=== PATIENT | male | born 1985 | race Caucasian/White ===

== ENCOUNTER → 2021-02-20 | Outpatient (CLI) | payer BC ==
--- NOTE | 2021-02-20 10:27 | RAD ---
Site ID: [id number] EXAMINATION: US ABDOMEN OR LOWER BACK LIMITED. TECHNIQUE: Sonographic evaluation of the right upper quadrant with insurance verification representative images obtained HISTORY: 35 years Male Reason: ELEVATED LFTs. . COMPARISON: None. FINDINGS: The pancreas is visualized portions appear grossly unremarkable. The liver is measures 19.7 cm craniocaudally. Echogenicity of the hepatic parenchyma is within ana l limits. No focal liver masses are identified. The portal vein is patent and demonstrates appropri ate direction of flow. The CBD caliber is 2 mm. The gallbladder demonstrates no stones, wall thickening or pericholecystic fluid. Sonographic Looney sign is reportedly negative. The right kidney measures 13 cm in length. No hydronephrosis. No fluid collection in the upper right abdomen is seen. IMPRESSION: No gallstones or evidence of cholecystitis. Hepatomegaly. Electronically signed by: Wiley Brennan MD (02/20/2021 10:25 AM) [id number]
== END ==
LOC: US 08:48
PROVIDERS: ATTEND Internal Medicine
DX: R16.0 Hepatomegaly, not elsewhere classified (principal); R79.89 Other specified abnormal findings of blood chemistry
CPT/HCPCS: 76705